=== PATIENT | male | born 1985 ===

== ENCOUNTER 2024-12-31 17:11 | Emergency (ER) | payer OTHER, SELFPAY ==
[2024-12-31 17:16] VITALS: BP 135/86
--- NOTE | 2024-12-31 17:45 | ED.MUSCINJ ---
HPI-Injury
General
Chief Complaint: Musculo-Skeletal Complaint
Source: patient
Exam Limitations: none
Time Seen by Provider: 12/31/24 17:33
Nursing documentation reviewed up to this point in time: agreed with
History of Present Illness-Injury
Is this injury a work related problem?: No
Is pt an associate of [facility]?: No
Initial Injury comments:
Patient states his sock slipped on step and he fell down 12 steps. Denies hitting his head. COmplains of pain to left posterior ribs. Injury occurred today.
Past History
Past History
ED Past Medical History: None
Review of Systems
Review of Systems
Allergies reviewed?: Yes
All Other Systems: ROS reviewed and negative except as documented in HPI and ROS
Constitutional: Reports no symptoms
EENT: Reports no symptoms
Respiratory: Reports no symptoms
Cardiac: Reports no symptoms
ABD/GI: Reports no symptoms
Musculoskeletal: Reports joint pain (Pain to left posterior ribs)
Skin: Reports no symptoms
Neurological: Reports no symptoms
Psychiatric: Reports no symptoms
Musculoskeletal Injury Exam
Musculoskeletal Injury Exam
Left Posterior Ribs:
Pain with Movement?: Moderate
Tender to palpation?: Moderate
Soft tissue swelling?: None
External deformity and angulation?: None
Joint effusion?: None
Contusion?: Moderate
Hematoma-local bleeding into tissue?: None
Strain- Sprain- Tear (Connective tissue injury)?: Moderate
Crepitus with movement?: No
Joint instability?: No
Malalignment/deformity?: No
Range of motion: Limited
Distal skin color and temperature: normal-warm & good color
Capillary Refill: normal
Normal distal neurovascular exam?: Yes
Phy Exam
General Physical Exam
General Presentation: well appearing and mild distress
General age: appears stated age
General Skin: warm and dry
General Habitus: normal
General Mental: alert
Pulmonary Exam
Pulmonary Exam: lungs clear and no respiratory distress
Gastrointestinal Exam
Gastrointestinal Exam: non tender and soft
Neurological Exam
Neurological Exam: alert, oriented x3, no motor deficits, no sensory deficits, speech normal and normal gait
Musculoskeletal Exam
Musculoskeletal Exam: neck pain and neuro vasc intact
Skin Exam
Skin Exam: normal color, warm/dry and no rash
Psychiatric Exam
Psychiatric Exam: normal mood/affect
Injury Course
Orders/Labs/Results
Orders:
Orders
12/31/24 17:20
CR Ribs-left 3 Vw W/pa Chest Urgent
Comment:
Reason For Exam: pain s/p fall
*Radiology
Radiology exam reviewed: radiology read reviewed
*Pulse Oximetry
Patient hypoxic: no
*Critical Care Note
Total Time (30-74mins, 75-104mins- exclusive of procedures): Not Applicable
ED Attending Note
-
Portions of this chart may have been created with voice recognition software.� Occasional wrong word or��sound alike� substitutions may have occurred due to the inherent limitations of voice recognition software.
Discharge Plan
Departure
Patient Disposition: Home (Routine Discharge)
Date of Disposition: 12/31/24
Time of Disposition: 17:44
Patient with high blood pressure during this ER visit?: No
Condition: Good
Covid-19: Not Applicable
Discharge Problem:
Chest wall contusion
Instructions: Contusion (DC), Ibuprofen, Using Cold for Pain
Prescriptions:
New
hydrocodone-acetaminophen 5-325 mg tablet
1 tab PO Q4H PRN (Reason: Pain) Qty: 10 0RF
Activity Restrictions/Additional Instructions:
FOllow up with your family doctor.
Interventions
Interventions:
*Risk Screen - Suicide Last Done: 12/31/24 17:16
*General Assessment Last Done: 12/31/24 17:54
*Neglect/Abuse Screening Last Done: 12/31/24 17:16
*ED- Fall Risk Assessment Last Done: 12/31/24 17:54
*ED COVID-19 Vaccine History Last Done: 12/31/24 17:16
*Nursing Disposition Last Done: 12/31/24 17:54
ED-Musculoskeletal Assessment Last Done: 12/31/24 17:53
Discharge Date and Time
Discharge Date/Time: 12/31/24 17:55
Print Language: YI
== END 2024-12-31 17:55 | disposition home or self-care (01) ==
LOC: EMR 17:11
PROVIDERS: EMERGENCY PHYSICIAN Emergency Medicine
DX: S20.219A Contusion of unspecified front wall of thorax, initial encounter (principal); W10.9XXA Fall (on) (from) unspecified stairs and steps, initial encounter
CPT/HCPCS: 99283; 71101

== ENCOUNTER 2025-01-03 18:58 | Emergency (ER) | payer OTHER, SELFPAY ==
[2025-01-03 19:08] VITALS: BP 133/80; BMI 28.2
--- NOTE | 2025-01-03 19:09 | ED.GENMED ---
History of Present Illness
General
Chief Complaint: Musculo-Skeletal Complaint
Source: patient
Time Seen by Provider: 01/03/25 19:01
History of Present Illness
History of Present Illness:
39-year-old male with no significant past medical history presents back to the emergency department after he was seen here 3 days ago after sustaining an accidental fall down approximately 12 steps. At that time patient was having some left-sided
rib pain, had an x-ray done here which not show any fractures and was ultimately discharged home. He reports that he was somewhat sore for 2 days but acutely today started with more pain to the same posterolateral left rib area to the point now
where he states any type of movement, coughing, deep breath causes him worsening pain. Patient denies any loss of consciousness, vomiting, chest pain, shortness of breath, diaphoresis, exertional dyspnea or any other concerns. He notes that he has
not noticed any blood within his urine. did give 400 mg of ibuprofen prior to arrival with no relief.
Past History
Past History
ED Past Medical History: None
ED Past Surgical History: None
Social History
Tobacco: Non-smoker
Alcohol: Occasional
Drug: None
Personal:
Living: with family
Employment: Employed
Review of Systems
Review of Systems
All Other Systems: ROS reviewed and negative except as documented in HPI and ROS
Phy Exam
Physical Exam
Physical Exam:
TRAUMA EXAM:
VITAL SIGNS: Vital signs reviewed, cooperative
DISTRESS: Appears uncomfortable, moaning
EYES: Pupils reactive, no orbital trauma
NOSE: No deformity or epistaxis
FACE AND SCALP: No scalp or facial trauma, external canals no blood
NECK: Supple nontender
BACK: Back nontender, pelvis stable to compression
RESPIRATORY: No distress, breath sounds normal, tenderness over the posterolateral ribs between ribs 5 through 7 but no focal bony tenderness, step-offs or crepitus. No overlying contusion or bruising
CARDIAC: No murmur, pulses equal and strong
ABDOMEN: Soft nontender bowel sounds normal
SKIN: Skin intact no bleeding, color normal
EXTREMITIES: Nontender
NEUROLOGICAL: Alert, oriented, no motor deficits
PSYCH: Mood affect normal
Scores
Heart Failure Risk
Heart Failure Risk Score: Not Applicable
Heart Score for Chest Pain Patients
STEMI patient?: Not applicable
Withdrawal Assessment of Alcohol
Withdrawal Assessment Completed?: Not applicable
Course
Orders/Labs/Results
Orders:
Orders
01/03/25 19:08
CT Chest/abd/pel W Iv Cont Urgent
Reason For Exam: fall down stairs left posterolateral rib/thoracic
01/03/25 19:09
HYDROmorphone [Dilaudid] 0.5 mg IV NOW STA
01/03/25 19:10
Electrocardiogram (*1) Urgent
Reason for Study: Chest Pain
EKG- Treatment ONCE
01/03/25 19:16
Complete Blood Count/With Diff Urgent
Comprehensive Metabolic Panel Urgent
PTT Urgent
Prothrombin Time Urgent
Troponin I Urgent
01/03/25 21:27
Ketorolac [Toradol] 30 mg IV NOW STA
Abnormal Lab Results
01/03/25
19:16
Glucose 153 H mg/dl
(70-99)
Total Bilirubin 1.4 H mg/dl
(0.2-1.3)
01/03/25 19:16
01/03/25 19:16
Vital Signs
Initial and Last Documented VS:
Initial Vital Signs
Temp Pulse Resp BP Pulse Ox
98.3 F 86 18 133/80 100
01/03/25 19:08 01/03/25 19:08 01/03/25 19:08 01/03/25 19:08 01/03/25 19:08
Last Documented Vital Signs
Temp Pulse Resp BP Pulse Ox
98.3 F 88 15 127/77 92
01/03/25 19:08 01/03/25 20:30 01/03/25 20:30 01/03/25 20:00 01/03/25 20:30
MDM/Problems Addressed
Differential Diagnosis Includes:
Rib fracture, cartilage injury, pneumothorax, splenic or kidney injury or other visceral injury
MDM/Problems Addressed:
39-year-old male presenting to the emergency department for reevaluation after being seen 3 days ago following an accidental fall down multiple steps. Patient had x-ray at that time which did not show any injury. He does note that he was
uncomfortable but not in significant pain up until earlier today. No relief with ibuprofen. Appears quite uncomfortable here. Hemodynamically stable. Given the mechanism combined with patient's current pain will obtain CT scan of the chest
abdomen and pelvis to further evaluate. EKG and troponin ordered although my suspicion for an acute cardiac complication and the patient with no significant past medical history is quite low. Dilaudid ordered for pain control.
*Radiology
Radiology exam reviewed: radiology read reviewed
*Pulse Oximetry
Patient hypoxic: no
*Critical Care Note
Total Time (30-74mins, 75-104mins- exclusive of procedures): Not Applicable
Data Reviewed
Review of Other/Old Records Reveals: Labs, Records and Radiology Studies
Patient Management
Escalation/DeEscalation of care consider admission/obs:
Patient CT scans do not reveal any acute intrathoracic or intra-abdominal pathologies. Possibility of intercostal strain versus cartilaginous injury. Patient states initially did have improved pain however pain returning. 30 mg of Toradol
provided prior to discharge. Prescription for cyclobenzaprine sent to pharmacy. Advised not to mix this with the hydrocodone that was prescribed to him 3 days ago. Patient and family expressed understanding. Stable for discharge home.
ED Attending Note
-
Portions of this chart may have been created with voice recognition software.� Occasional wrong word or��sound alike� substitutions may have occurred due to the inherent limitations of voice recognition software.
Discharge Plan
Departure
Patient Disposition: Home (Routine Discharge)
Date of Disposition: 01/03/25
Time of Disposition: 21:19
Patient with high blood pressure during this ER visit?: No
Discharge Problem:
Dorsalgia
Instructions: Rib fracture or bruised rib - ED discharge instructions
Prescriptions:
New
cyclobenzaprine 5 mg tablet
5 mg PO BID Qty: 6 0RF
No Action
hydrocodone-acetaminophen 5-325 mg tablet
1 tab PO Q4H PRN (Reason: Pain) Qty: 10 0RF
Referrals:
NONE,* [Family Provider] -
Interventions
Interventions:
*Risk Screen - Suicide Last Done: 01/03/25 19:08
*General Assessment Last Done: 01/03/25 19:08
*Neglect/Abuse Screening Last Done: 01/03/25 19:08
*ED- Fall Risk Assessment Last Done: 01/03/25 21:51
*ED COVID-19 Vaccine History Last Done: 01/03/25 19:08
*Nursing Disposition Last Done: 01/03/25 21:51
ED-Musculoskeletal Assessment Last Done: 01/03/25 19:22
Discharge Date and Time
Print Language: [place]
[2025-01-03] MEDS: DILAUDID 0.5 MG IV (19:19)
[2025-01-03 19:22] LABS: % Basophils 0.5 % (0-2); % Immature Granulocytes 0.2 % (0-0.5); % Lymphocytes 39.6 % (20.5-51.1); % Monocytes 7.6 % (1.7-9.3); % Neutrophils 51.1 % (42.2-75.2); Absolute Eosinophils 0.1 10^3/uL (0-0.7); Absolute Lymphocytes 2.3 10^3/uL (1.2-3.4); Absolute Monocytes 0.4 10^3/uL (0.1-0.6); Hematocrit 42.1 % (39.0-52.0); Hemoglobin 15.2 g/dL (13.0-18.0); Mean Corp Hgb Conc. 36.1 g/dL (33.0-37.0); Mean Corpuscular Volume 83.2 fL (80.0-94.0); Mean Platelet Volume 9.6 fL (7.4-10.4); Nucleated Red Blood Cells % 0 % (-); Platelet Count 158 10^3/uL (130-400); Red Blood Cell Count 5.06 10^6/uL (4.70-6.10); Red Cell Dist. Width 12.8 % (11.5-14.5); White Blood Cell Count 5.8 10^3/uL (4.8-10.8)
[2025-01-03 19:33] LABS: APTT 25.7 Sec (23.4-35.0)
[2025-01-03 19:37] LABS: INR 0.97; PT 13.2 Sec (11.4-14.6)
[2025-01-03 19:43] LABS: ALT (SGPT) 22 U/L (0-50); AST (SGOT) 21 U/L (17-59); Albumin 4.7 g/dl (3.5-5.0); Alkaline Phosphatase 70 U/L (38-126); Blood Urea Nitrogen 16 mg/dl (9-20); Carbon Dioxide 24 mmol/L (22-30); Chloride 102 mmol/L (98-107); Estimated Creatinine Clearance 96 ml/min; Glucose 153 mg/dl (70-99); Potassium 4.2 mmol/L (3.5-5.1); Sodium 137 mmol/L (135-145); Total Bilirubin 1.4 mg/dl (0.2-1.3); Total Protein 7.1 g/dl (6.3-8.2); eGFR > 60.00
[2025-01-03 19:47] LABS: Troponin I < 0.012 ng/ml
[2025-01-03 20:00] VITALS: BP 127/77
[2025-01-03] MEDS: TORADOL 30 MG IV (21:32)
== END 2025-01-03 21:52 | disposition home or self-care (01) ==
LOC: EMR 18:58
PROVIDERS: Physician Assistant Medical; EMERGENCY PHYSICIAN Emergency Medicine
DX: M54.6 Pain in thoracic spine (principal); W10.9XXA Fall (on) (from) unspecified stairs and steps, initial encounter
CPT/HCPCS: 99284; 96374; 96375; 71260; 74177; 80053; 84484; 85025; 85610; 85730; 93005; Q9967